=== PATIENT | female | born 1960 | race Caucasian/White ===

== ENCOUNTER 2023-09-01 08:29 | Day surgery (SDC) | payer MEDICARE, SELFPAY ==
--- NOTE | 2023-08-17 09:26 | CM ---
Patient is scheduled for cervical spine surgery on 09/01/23. Spoke with patient prior to surgery via telephone. Introduced role of the Orthopedic Navigator. Patient reports that she lives with her in a two story home. There is one step to
enter and a flight of steps to the second floor. She currently functions independently. She has a cervical collar. She has never had VN services. PCP is Braulio Novoa.
Discussed orthopedic program, post surgical plans and tentative plan for patient to return home when directed by surgeon. Patient is in agreement with tentative plan and will have support from her when she goes home. Her does work
and she doesn't anticipate that he will take any time off after her surgery.
Plan: Orthopedic Navigator will remain available to assist with the care of patient and will reassess discharge needs after surgery.
[2023-08-19 13:13] VITALS: BMI 38.7
[2023-08-19 13:57] LABS: Hematocrit 39.7 % (37.0-47.0); Hemoglobin 13.3 g/dL (12.0-16.0); Mean Corp Hgb Conc. 33.5 g/dL (33.0-37.0); Mean Corpuscular Hgb 27.7 pg (27.0-31.0); Mean Corpuscular Volume 82.5 fL (81.0-99.0); Mean Platelet Volume 11.7 fL (7.4-10.4); Platelet Count 282 10^3/uL (130-400); Red Blood Cell Count 4.81 10^6/uL (4.20-5.40); Red Cell Dist. Width 14.7 % (11.5-14.5); White Blood Cell Count 9.2 10^3/uL (4.8-10.8)
[2023-08-19 14:21] LABS: ALT (SGPT) 26 U/L (0-35); AST (SGOT) 36 U/L (14-36); Albumin 4.4 g/dl (3.5-5.0); Alkaline Phosphatase 92 U/L (38-126); Blood Urea Nitrogen 20 mg/dl (7-17); Calcium 9.5 mg/dl (8.4-10.2); Carbon Dioxide 24 mmol/L (22-30); Chloride 106 mmol/L (98-107); Estimated Creatinine Clearance 72 ml/min; Glucose 134 mg/dl (70-99); Potassium 4.6 mmol/L (3.5-5.1); Sodium 140 mmol/L (135-145); Total Bilirubin 0.5 mg/dl (0.2-1.3); Total Protein 7.2 g/dl (6.3-8.2); eGFR > 60.00
[2023-08-27 13:04] VITALS: BMI 38.7
[2023-09-01] VITALS (13 sets, daily range): BP systolic 119–168; BP diastolic 74–100; BMI 38.7
[2023-09-01] MEDS: NORMOSOL-R 1000 IV ×2 (08:48→16:34)
[2023-09-01] MEDS: SKELAXIN 800 MG PO ×2 (08:49→18:09)
[2023-09-01] MEDS: TYLENOL 1000 MG PO (08:49)
[2023-09-01] MEDS: LYRICA 150 MG PO (08:49)
[2023-09-01] MEDS: CELEBREX 200 MG PO (08:49)
[2023-09-01 08:51] LABS: Glucose - Point of Care 162 mg/dl (70-99)
[2023-09-01 10:34] LABS: Glucose - Point of Care 148 mg/dl (70-99)
[2023-09-01] MEDS: TRANSDERM-SCOP 1 PATCH TRANSDERM (12:08)
[2023-09-01 12:20] LABS: Glucose - Point of Care 144 mg/dl (70-99)
[2023-09-01 14:44] LABS: Glucose - Point of Care 145 mg/dl (70-99)
[2023-09-01] MEDS: ZOFRAN 4 MG IV (14:52)
[2023-09-01] MEDS: COMPAZINE 5 MG IV (15:10)
[2023-09-01] MEDS: DILAUDID 0.25 MG IV (15:25)
--- NOTE | 2023-09-01 16:31 | W.DS.TRANS ---
DC Summary - Corporate Investigator
-
Discharge Instructions:
Sleep Apnea Risk Intermediate
Discharge Diagnosis/Procedures ACDF Dr. Chang 09/01/23
Diet Diabetic, Carb Controlled
Activity No strenuous activity
Driving Restrictions No driving
Instructions:
Stand-Alone Forms: [facility] Cervical D/C Inst.
Changes to Home Medications: Yes
Discharge Medications:
DC Medications w/original date entered in [facility]
amlodipine 10 mg tablet 10 mg PO DAILY 08/25/23
aspirin 81 mg tablet,delayed release 81 mg PO DAILY 08/25/23
benazepril 40 mg tablet 40 mg PO DAILY 08/25/23
cholecalciferol (vitamin D3) 125 mcg (5,000 unit) tablet (Vitamin D3) 125 mcg PO DAILY 08/25/23
metformin 500 mg tablet,extended release 24 hr 500 mg PO DAILY 08/25/23
metoprolol succinate 50 mg tablet,extended release 24 hr 50 mg PO DAILY 08/25/23
omeprazole 20 mg capsule,delayed release 20 mg PO DAILY 08/25/23
semaglutide 2 mg/dose (8 mg/3 mL) subcutaneous pen injector (Ozempic) 2 mg SC QWEEK 08/25/23
Saccharomyces boulardii 250 mg capsule (Florastor) 250 mg PO BID #1 cap 09/01/23
clindamycin HCl 300 mg capsule 300 mg PO QID Infection #20 caps 09/01/23
diazepam 2 mg tablet (Valium) 2 mg PO BID muscle pain/sleep #10 tabs 09/01/23
docusate sodium 100 mg capsule (Colace) 100 mg PO BID stool softner #1 cap 09/01/23
gabapentin 300 mg capsule 300 mg PO BID pain/sleep #0 caps 09/01/23
hydrocodone 5 mg-acetaminophen 325 mg tablet 1 tab PO Q6H PRN 1 tab moderate pain or 2 if severe #30 tabs 09/01/23
magnesium hydroxide 400 mg/5 mL oral suspension (Milk of Magnesia) 30 ml PO HS PRN Constipation #1 mL 09/01/23
ondansetron 4 mg disintegrating tablet 4 mg PO Q6H PRN n/v #20 tabs 09/01/23
sennosides 8.6 mg tablet (Senokot) 17.2 mg (2 x 8.6 mg) PO BID laxative #2 tabs 09/01/23
Home Medication Changes
clindamycin HCl 300 mg capsule 300 mg PO QID Infection #20 caps 09/01/23�
diazepam 2 mg tablet (Valium) 2 mg PO BID muscle pain/sleep #10 tabs 09/01/23�
gabapentin 300 mg capsule 300 mg PO BID pain/sleep #0 caps 09/01/23�
hydrocodone 5 mg-acetaminophen 325 mg tablet 1 tab PO Q6H PRN 1 tab moderate pain or 2 if severe #30 tabs 09/01/23�
ondansetron 4 mg disintegrating tablet 4 mg PO Q6H PRN n/v #20 tabs 09/01/23�
Pending Results: No
--- NOTE | 2023-09-01 16:40 | PTCARENOTE ---
Pt received from the PACU via bed. Transport was w/o incident. Pt is AAOx3, HRR, lungs are clear. Pt with an anterior cervical dressing C/D/I with soft cervical collar maintained. VSS, Pt is afebrile. Pt instructed on plan of care. Pt verbalized
understanding of instructions. Call ortiz is within reach.
[2023-09-01 16:56] LABS: Glucose - Point of Care 188 mg/dl (70-99)
[2023-09-01] MEDS: ULTRAM 50 MG PO ×2 (18:08→21:31)
[2023-09-01] MEDS: PROTONIX 40 MG PO (18:09)
[2023-09-01] MEDS: GLUCOPHAGE XR EXTENDED RELEASE 500 MG PO (18:10)
[2023-09-01] MEDS: LANTUS 0.05 UNITS SC (18:11)
[2023-09-01] MEDS: NOVOLOG FLEXPEN-MODERATE RESISTANCE 1 UNITS SC (18:12)
[2023-09-01] MEDS: ANCEF 5 IV (18:15)
[2023-09-01] MEDS: LYRICA 75 MG PO (21:30)
[2023-09-01] MEDS: SENOKOT PO (21:33)
[2023-09-01] MEDS: COLACE PO (21:33)
[2023-09-01 22:46] LABS: Glucose - Point of Care 319 mg/dl (70-99)
[2023-09-01] MEDS: NOVOLOG FLEXPEN 7 UNITS SC (23:57)
[2023-09-02] MEDS: SKELAXIN 800 MG PO ×2 (01:05→07:41)
[2023-09-02] MEDS: NORMOSOL-R 1000 IV (02:08)
[2023-09-02] MEDS: ANCEF 5 IV (02:08)
[2023-09-02 02:09] LABS: Glucose - Point of Care 186 mg/dl (70-99)
[2023-09-02] MEDS: ULTRAM 50 MG PO ×3 (02:09→09:11)
[2023-09-02 03:17] VITALS: BP 156/105
[2023-09-02 07:00] VITALS: BP 147/83
[2023-09-02 07:38] LABS: Glucose - Point of Care 153 mg/dl (70-99)
[2023-09-02] MEDS: COLACE 100 MG PO (07:40)
[2023-09-02] MEDS: TOPROL XL 25 MG PO (07:40)
[2023-09-02] MEDS: NOVOLOG FLEXPEN-MODERATE RESISTANCE 1 UNITS SC (07:40)
[2023-09-02] MEDS: PROTONIX 40 MG PO (07:40)
[2023-09-02] MEDS: SENOKOT 17.2 MG PO (07:40)
[2023-09-02] MEDS: NEURONTIN 300 MG PO (07:40)
[2023-09-02] MEDS: NORVASC 5 MG PO (07:41)
[2023-09-02] MEDS: GLUCOPHAGE XR EXTENDED RELEASE 500 MG PO (07:41)
[2023-09-02] MEDS: LYRICA 75 MG PO (07:41)
[2023-09-02] MEDS: LANTUS 0.05 UNITS SC (07:47)
--- NOTE | 2023-09-02 07:48 | W.PN.SP ---
Today's Communication / Plan
-
s/p acdf
Doing well
PT
Subjective / Objective
Subjective Data
PT doing well
Swallowing a little sore
Denies weakness or difficulty breathing
Objective Data
Vital Signs
Temp Pulse Resp BP Pulse Ox
97.2 F 86 16 147/83 97
09/02/23 07:00 09/02/23 07:00 09/02/23 07:00 09/02/23 07:00 09/02/23 07:00
Intake and Output
09/01/23 09/02/23 09/03/23
06:59 06:59 06:59
Intake Total 1979 / 1979
Output Total 50 / 50
Balance 1929 / 1929
Intake:
Oral fluids 480 / 480
IV fluids (Total) 1500 / 1500
Normosol 300 / 300
Output:
Urine, Voided 50 / 50
Other:
Number of approximated MODERATE 4
amounts of urine
Physical Exam
-
No focal deficits
[2023-09-02 07:58] LABS: Hematocrit 36.7 % (37.0-47.0); Hemoglobin 12.6 g/dL (12.0-16.0)
--- NOTE | 2023-09-02 08:38 | CM ---
Reviewed chart and held rounds with PT, OT and RN. Patient had planned cervical spine surgery with Dr. Chang on 08/31. Met with patient at bedside. Confirmed information previously obtained for assessment and discussed discharge plans. Patient
continues to plan to return home at discharge. She will have support from her and mother (who lives close by) when she goes home. Reviewed that she will work with PT/OT this morning and that discharge needs will depend on her functional
status. However, no needs currently identified.
Patient has no DME.
Patient will use [facility] pharmacy for discharge prescriptions.
[2023-09-02 09:54] LABS: Blood Urea Nitrogen 11 mg/dl (7-17); Calcium 8.8 mg/dl (8.4-10.2); Carbon Dioxide 21 mmol/L (22-30); Chloride 105 mmol/L (98-107); Estimated Creatinine Clearance 91 ml/min; Glucose 138 mg/dl (70-99); Potassium 4.5 mmol/L (3.5-5.1); Sodium 138 mmol/L (135-145); eGFR > 60.00
[2023-09-02 10:16] VITALS: BP 128/71; PULSE 85; O2SAT 98
[2023-09-02 11:00] VITALS: BP 114/72
[2023-09-02] MEDS: NOVOLOG FLEXPEN-MODERATE RESISTANCE SC (11:30)
--- NOTE | 2023-09-02 12:01 | W.PN.ORTHO ---
Today's Communication / Plan
-
d/c
Assessment
.
Distal Motor Intact: Yes
Dressing:
Clean, dry and intact.
Plan
.
Surgery / Date: C6 corpectomy, C5-C7 ACD[address] Dr. Chang 09/01/23
Activity:
Out of bed.
PT/OT
Discharge Plan: Home
Subjective
.
.:
Patient resting comfortably.
Vital Signs and Labs
.
Vital Signs and Labs:
Lab Results
09/02/23 06:44
09/02/23 06:44
Temp Pulse Resp BP Pulse Ox
98.1 F 79 14 114/72 97
09/02/23 11:00 09/02/23 11:00 09/02/23 11:00 09/02/23 11:00 09/02/23 11:00
Physical Exam
-
HEENT: No pallor, cyanosis, or jaundice. Throat clear.
NECK: Supple. No JVD.
RESPIRATORY: Lungs clear to auscultation.
CVS: S1, S2 normal. RRR.� No murmur, rub or gallop.
ABDOMEN: Soft, non-tender. No distension. BS+/normal.
EXTREMITIES: strength equal, no calf pain with palpation
TRANSMISSION TESTER: AOx3. No focal deficits. double end tenon operator grossly intact
[2023-09-02] MEDS: NORMOSOL-R IV (12:45)
== END 2023-09-02 12:55 | disposition home or self-care (01) ==
LOC: PACU 08:29
PROVIDERS: Physician Assistant Medical; ATTENDING PHYSICIAN Orthopaedic Surgery Orthopaedic Surgery of the Spine; FAMILY PHYSICIAN Internal Medicine
PROC: 00NW0ZZ Release Cervical Spinal Cord, Open Approach (ICD-10-PCS; 2023-09-01)
PROC: 0RG20A0 Fusion of 2 or more Cervical Vertebral Joints with Interbody Fusion Device, Anterior Approach, Anterior Column, Open Approach (ICD-10-PCS; 2023-09-01)
PROC: 0RB30ZZ Excision of Cervical Vertebral Disc, Open Approach (ICD-10-PCS; 2023-09-01)
DX: M50.022 Cervical disc disorder at C5-C6 level with myelopathy (principal); M48.02 Spinal stenosis, cervical region; M50.023 Cervical disc disorder at C6-C7 level with myelopathy; E11.9 Type 2 diabetes mellitus without complications; I10 Essential (primary) hypertension; E66.9 Obesity, unspecified; Z68.38 Body mass index [BMI] 38.0-38.9, adult
CPT/HCPCS: 22551; 22552; 22853 ×2; 20930; 22845; C1889; 36415; 72020; 80048; 80053; 82962; 85014; 85018; 85027; 87070; 97116; 97162; 97166; 97535